=== PATIENT | female | born 1985 | race Caucasian/White ===

== ENCOUNTER → 2023-09-09 17:41 | Outpatient (REF) | payer BC, SELFPAY | LOC: WDC 17:41 | PROVIDERS: ATTENDING PHYSICIAN Obstetrics & Gynecology | DX: N64.4 Mastodynia (principal); R92.323 Mammographic fibroglandular density, bilateral breasts | CPT/HCPCS: 77062; 77066 ==

== ENCOUNTER → 2024-01-28 13:39 | Outpatient (REF) | payer BC, SELFPAY | LOC: HWRAD 13:39 | PROVIDERS: ATTENDING PHYSICIAN Otolaryngology; FAMILY PHYSICIAN Student in an Organized Health Care Education/Training Program | DX: J32.3 Chronic sphenoidal sinusitis (principal) | CPT/HCPCS: 70486 ==

== ENCOUNTER → 2024-03-21 10:44 | Outpatient (REF) | payer BC, SELFPAY | LOC: HWRAD 10:44 | PROVIDERS: ATTENDING PHYSICIAN Student in an Organized Health Care Education/Training Program | DX: Z11.1 Encounter for screening for respiratory tuberculosis (principal) | CPT/HCPCS: 71046 ==

== ENCOUNTER → 2024-10-11 12:07 | Outpatient (REF) | payer BC, SELFPAY | LOC: WDC 12:07 | PROVIDERS: ATTENDING PHYSICIAN Obstetrics & Gynecology; FAMILY PHYSICIAN Student in an Organized Health Care Education/Training Program | DX: Z12.31 Encounter for screening mammogram for malignant neoplasm of breast (principal) | CPT/HCPCS: 77063; 77067 ==

== ENCOUNTER → 2024-10-24 10:19 | Outpatient (REF) | payer BC, SELFPAY | LOC: WDC 10:19 | PROVIDERS: ATTENDING PHYSICIAN Obstetrics & Gynecology; FAMILY PHYSICIAN Student in an Organized Health Care Education/Training Program | DX: R92.2 Inconclusive mammogram (principal) | CPT/HCPCS: 76641 ==

== ENCOUNTER → 2024-11-21 08:17 | Outpatient (REF) | payer BC, SELFPAY | LOC: HWRAD 08:17 | PROVIDERS: ATTENDING PHYSICIAN Obstetrics & Gynecology; FAMILY PHYSICIAN Student in an Organized Health Care Education/Training Program | DX: N83.202 Unspecified ovarian cyst, left side (principal) | CPT/HCPCS: 76830; 76856 ==